=== PATIENT | male | born 1970 | race African-American/Black ===

== ENCOUNTER 2024-04-08 22:14 | Emergency (ER) | payer OTHER ==
[2024-04-08 22:25] VITALS: BP 135/74; PULSE 58; RESP 19; TEMP 97.8; BMI 29.4
== END 2024-04-09 00:05 | disposition home or self-care (01) ==
LOC: JER 22:14
DX: T23.101A Burn of first degree of right hand, unspecified site, initial encounter (principal); X12.XXXA Contact with other hot fluids, initial encounter
CPT/HCPCS: 99283-25